=== PATIENT | male | born 1955 | race African-American/Black ===

== ENCOUNTER 2019-09-28 21:11 | Inpatient (IN) | payer MEDICARE, MEDICAID ==
[~2019-09-28] VITALS: Ht 182.9 cm; Wt 71.2 kg
--- NOTE | 2019-09-28 21:11 | NUR ---
ED Nurse Note: PT BIBA R26 FROM HOME C/C SOB X 1 HR, PT WAS GIVEN ALBUTEROL TX ON FIELD. IV ACCESS PRESENT; FLUSHED AND PATENT. AO4. NAD. VSS.
--- NOTE | 2019-09-28 21:18 | Emergency Room Report ---
History of Present Illness General Chief Complaint: Dyspnea/Respdistress Source: Patient Present Illness HPI 64-year-old male history of hypertension, cancer, asthma, COPD presents with acute shortness of breath, patient did have his inhaler, started at 9 PM, aggravated by not having his inhaler alleviated by having his inhaler, severity was severe, constant, patient was given duo nebs in route, with improvement in his symptoms no fevers no chills, no cough no congestion. Allergies: Coded Allergies: IBUPROFEN (Verified Allergy, Unknown, 09/28/19) Patient History Past Medical History: see triage record Social History: Reports: smoking, alcohol use, drug use Reviewed Nursing Documentation: PMH: Agreed; PSxH: Agreed Nursing Documentation-PMH Past Medical History: No History, Except For Hx Hypertension: Yes Hx Asthma: Yes Hx COPD: Yes Review of Systems All Other Systems: negative except mentioned in HPI Physical Exam Vital Signs Date Time Temp Pulse Resp B/P (MAP) Pulse Ox O2 Delivery O2 Flow Rate FiO2 09/28/19 21:10 98.8 76 18 137/92 (107) 98 Room Air Sp02 EP Interpretation: reviewed, normal General Appearance: well appearing, no apparent distress, alert Head: normocephalic, atraumatic Eyes: bilateral eye PERRL, bilateral eye EOMI ENT: uvula midline, moist mucus membranes Neck: supple, thyroid normal, supple/symm/no masses Respiratory: no respiratory distress, no retraction, no accessory muscle use, wheezing Cardiovascular #1: normal peripheral pulses, regular rate, rhythm, no edema, no gallop, no murmur Gastrointestinal: non tender, soft, no guarding, no rebound Musculoskeletal: normal inspection Neurologic: alert, oriented x3 Psychiatric: mood/affect normal Skin: no rash, warm/dry Medical Decision Making Diagnostic Impression: Primary Impression: COPD exacerbation ER Course 64-year-old male presents with acute shortness of breath differential diagnosis includes pneumonia, COPD exacerbation, URI Duo nebs, steroids, fluids Patient admitted to Dr. Pink Laboratory Tests Test 09/28/19 21:15 White Blood Count 9.6 K/UL (4.8-10.8) Red Blood Count 4.88 M/UL (4.70-6.10) Hemoglobin 10.2 G/DL (14.2-18.0) L Hematocrit 33.4 % (42.0-52.0) L Mean Corpuscular Volume 69 FL (80-99) L Mean Corpuscular Hemoglobin 20.8 PG (27.0-31.0) L Mean Corpuscular Hemoglobin Concent 30.4 G/DL (32.0-36.0) L Red Cell Distribution Width 18.7 % (11.6-14.8) H Platelet Count 224 K/UL (150-450) Mean Platelet Volume 11.0 FL (6.5-10.1) H Neutrophils (%) (Auto) 56.8 % (45.0-75.0) Lymphocytes (%) (Auto) 29.4 % (20.0-45.0) Monocytes (%) (Auto) 8.5 % (1.0-10.0) Eosinophils (%) (Auto) 4.5 % (0.0-3.0) H Basophils (%) (Auto) 0.8 % (0.0-2.0) Sodium Level 148 MMOL/L (136-145) H Potassium Level 3.4 MMOL/L (3.5-5.1) L Chloride Level 111 MMOL/L (98-107) H Carbon Dioxide Level 34 MMOL/L (21-32) H Anion Gap 3 mmol/L (5-15) L Blood Urea Nitrogen 15 mg/dL (7-18) Creatinine 1.0 MG/DL (0.55-1.30) Estimate Glomerular Filtration Rate > 60 mL/min (>60) Glucose Level 111 MG/DL (74-106) H Calcium Level 9.2 MG/DL (8.5-10.1) Total Bilirubin 0.3 MG/DL (0.2-1.0) Aspartate Amino Transferase (AST) 11 U/L (15-37) L Alanine Aminotransferase (ALT) 16 U/L (12-78) Alkaline Phosphatase 121 U/L (46-116) H Troponin I 0.015 ng/mL (0.000-0.056) Pro-B-Type Natriuretic Peptide 203 pg/mL (0-125) H Total Protein 7.3 G/DL (6.4-8.2) Albumin 3.3 G/DL (3.4-5.0) L Globulin 4.0 g/dL Albumin/Globulin Ratio 0.8 (1.0-2.7) L EKG Diagnostic Results EKG Time: 21:11 EP Interpretation: NSR, rate 86, QTc 411, right axis deviation, no acute ST elevations Rhythm Strip Diag. Results Rhythm Strip Time: 22:01 EP Interpretation: yes Rate: 88 Rhythm: NSR, no PVC's, no ectopy Chest X-Ray Diagnostic Results Chest X-Ray Diagnostic Results : Chest X-Ray Ordered: Yes # of Views/Limited/Complete: 1 View Indication: Shortness of Breath EP Interpretation: Yes Interpretation: no consolidation, no effusion, no pneumothorax, no acute cardiopulmonary disease Impression: No acute disease Electronically Signed by: Sarkis Dickinson MD Last Vital Signs Date Time Temp Pulse Resp B/P (MAP) Pulse Ox O2 Delivery O2 Flow Rate FiO2 09/28/19 21:10 98.8 76 18 137/92 (107) 98 Room Air Disposition: ADMITTED INPATIENT Condition: Stable Sarkis Dickinson MD Sep 28, 2019 21:18
--- NOTE | 2019-09-28 21:30 | NUR ---
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 blood collected; sent down to lab.
[2019-09-28 21:33] VITALS: BP 137/92
[2019-09-28] MEDS: Albuterol ud Inhalation HHN SCH ×3 (21:34→21:52)
[2019-09-28] MEDS: Ipratropium 0.02% Inh Soln 2.5ml UD HHN SCH ×3 (21:34→21:53)
[2019-09-28 21:41] LABS: BASOPHILS % (AUTO) 0.8 % (0.0-2.0); EOSINOPHILS % (AUTO) 4.5 % (0.0-3.0); HEMATOCRIT 33.4 % (42.0-52.0); HEMOGLOBIN 10.2 G/DL (14.2-18.0); LYMPHOCYTES % (AUTO) 29.4 % (20.0-45.0); MEAN CORPUSCULAR VOLUME 69 FL (80-99); MONOCYTES % (AUTO) 8.5 % (1.0-10.0); NEUTROPHILS % (AUTO) 56.8 % (45.0-75.0); PLATELET COUNT 224 K/UL (150-450); RED BLOOD COUNT 4.88 M/UL (4.70-6.10); RED CELL DISTRIBUTION WIDTH 18.7 % (11.6-14.8); WHITE BLOOD COUNT 9.6 K/UL (4.8-10.8)
[2019-09-28 21:52] LABS: ANION GAP 3 mmol/L (5-15); BLOOD UREA NITROGEN 15 mg/dL (7-18); CALCIUM 9.2 MG/DL (8.5-10.1); CARBON DIOXIDE 34 MMOL/L (21-32); CHLORIDE 111 MMOL/L (98-107); POTASSIUM 3.4 MMOL/L (3.5-5.1); SODIUM 148 MMOL/L (136-145)
[2019-09-28 22:04] LABS: ALANINE AMINOTRANSFERASE 16 U/L (12-78); ALBUMIN 3.3 G/DL (3.4-5.0); ALBUMIN/GLOBULIN RATIO 0.8 (1.0-2.7); ALKALINE PHOSPHATASE 121 U/L (46-116); ASPARTATE AMINO TRANSFERASE 11 U/L (15-37); BILIRUBIN,TOTAL 0.3 MG/DL (0.2-1.0)
--- NOTE | 2019-09-28 22:09 | NUR ---
ED Nurse Note: HENRY RIVERA - [phone] (PT'S DAUGHTER)
[2019-09-28 23:00] VITALS: BP 122/92
[2019-09-28] MEDS ORDERED: LORazepam 1mg tab ORAL PRN (23:15)
[2019-09-28] MEDS ORDERED: Mylanta II UD 30ml ORAL PRN (23:15)
[2019-09-28] MEDS ORDERED: Zolpidem 5mg tab ORAL PRN (23:15)
--- NOTE | 2019-09-28 23:45 | NUR ---
TRANSFER TO FLOOR: Patient transferred to [facility] [id number] as ordered, per MD HELENA. Report given to ANNY LOW. BELONGINGS LIST COMPLETE; BELONGINGS SENT WITH PATIENT. TRANSFERRED TO FLOOR VIA [facility].
[2019-09-28] MEDS ORDERED: NKM (23:58)
[2019-09-29 00:15] VITALS: BP 131/83
--- NOTE | 2019-09-29 00:15 | NUR ---
NURSE NOTES: Pt arrived in the unit. AAOX4. Able to make needs known. On room air. IV site is patent and intact. [place] on the abdomen noted, but overall, skin is intact. Belongings checked and with the pt. Bed in lowest position. Bed alarm is on. Call light within reach. Will continue to monitor.
[2019-09-29 04:00] VITALS: BP 139/89
[2019-09-29] MEDS: Solu-MEDROL 40mg Inj IVP SCH ×3 (05:40→22:10)
[2019-09-29 07:04] LABS: HEMATOCRIT 31.5 % (42.0-52.0); HEMOGLOBIN 9.4 G/DL (14.2-18.0); MEAN CORPUSCULAR VOLUME 69 FL (80-99); PLATELET COUNT 197 K/UL (150-450); RED BLOOD COUNT 4.54 M/UL (4.70-6.10); WHITE BLOOD COUNT 7.5 K/UL (4.8-10.8)
--- NOTE | 2019-09-29 07:35 | NUR ---
HAND-OFF: Report given to Elise Hagen RN.
--- NOTE | 2019-09-29 07:40 | NUR ---
NURSE NOTES: Received report from DEVANTE Vasquez. Pt is Alert, awake, having breakfast on bed. On RA, IV site intact, no apparent distress noted. [place] on abd noted from previous surgery. Bed locked in lowest position, side rails up, call light within reach.
[2019-09-29 07:41] LABS: ANION GAP 12 mmol/L (5-15); BLOOD UREA NITROGEN 11 mg/dL (7-18); CARBON DIOXIDE 25 MMOL/L (21-32); CHLORIDE 108 MMOL/L (98-107); POTASSIUM 3.6 MMOL/L (3.5-5.1); SODIUM 145 MMOL/L (136-145)
[2019-09-29 08:00] VITALS: BP 138/66
--- NOTE | 2019-09-29 08:05 | NUR ---
Called Dr. Pink's office and spoke to Dr. Tillman regarding pt's pain 07/04 at his abd. Awaiting for MD's call for pain med.
--- NOTE | 2019-09-29 08:49 | History and Physical ---
History of Present Illness General Date patient seen: Sep 29, 2019 Reason for Hospitalization: Dyspnea/Respdistress Present Illness HPI poor historian, information obtained via reviewing medical records 64 year old male with history of COPD presented to the hospital with shortness of breath for one day after running out of inhaler. He tells me he recently had an abdominal surgery for cancer at [facility] in [facility] but doesn't know what cancer. Doesn't remember the name of his medications. Lives alone. Doesn't use home oxygen. Denies chest pain, palpitations, abdominal pain, n/v or diarrhea. Denies fever, chills, cough or sputum production. Received duonebs and prednisone in the ER, remained in respiratory distress, tachypnic and admitted PMH: ?Cancer, HTN, COPD/Asthma PSH: recent abdominal surgery Social: Report smoking cigarettes, etoh and drugs Family history: unknown Allergies: Coded Allergies: IBUPROFEN (Verified Allergy, Unknown, 09/28/19) Medication History Scheduled No Known Medications* (NKM - No Known Medications*), 0 ., (Reported) Patient History Healthcare decision maker Resuscitation status Full Code Advanced Directive on File No Review of Systems Constitutional: Denies: no symptoms, see HPI, chills, sweats, fever, malaise, weakness, other Eye: Denies: no symptoms, see HPI, eye pain, blurred vision, tearing, double vision, nose pain, nose congestion, acuity changes, discharge, other ENT: Denies: no symptoms, see HPI, ear pain, ear discharge, nose pain, nose congestion, throat pain, throat swelling, mouth pain, hearing loss, nasal discharge, other Respiratory: Reports: no symptoms, see HPI, cough, orthopnea, stridor, BROUSSARD, sputum, other Cardiovascular: Denies: no symptoms, see HPI, chest pain, edema, palpitations, syncope, PND, other Gastrointestinal: Denies: no symptoms, see HPI, abdominal pain, constipation, diarrhea, nausea, vomiting, melena, hematemesis, other Genitourinary: Denies: no symptoms, see HPI, discharge, dysuria, frequency, hematuria, pain, retention, incontinence, urgency, vag bleed/dc, other Musculoskeletal: Denies: no symptoms, see HPI, back pain, gout, joint pain, joint swelling, muscle pain, muscle stiffness, other Skin: Denies: no symptoms, see HPI, rash, change in color, change in hair/nails , dryness, lesions, other Psychiatric: Denies: no symptoms, see HPI, prior hx, anxiety, depressed feelings, emotional problems, SI, HI, hallucinations, other Neurological: Denies: no symptoms, see HPI, headache, numbness, paresthesia, seizure, tingling, tremors, focal weakness, syncope, dizziness, other Endocrine: Denies: no symptoms, see HPI, excessive sweating, flushing, intolerance to temperature, increased thirst, increased urine, unexplained weight loss, other Hematologic/Lymphatic: Denies: no symptoms, see HPI, anemia, blood clots, easy bleeding, easy bruising, swollen glands, diathesis, other Physical Exam Physical Exam Narrative General Appearance: well appearing, respiratory distress, alert Head: normocephalic, atraumatic Eyes: bilateral eye PERRL, bilateral eye EOMI ENT: uvula midline, moist mucus membranes Neck: supple, thyroid normal, supple/symm/no masses Respiratory: no respiratory distress, no retraction, no accessory muscle use, + wheezing Cardiovascular: normal peripheral pulses, regular rate, rhythm, no edema, no gallop, no murmur Gastrointestinal: non tender, soft, no guarding, no rebound, midline christine Musculoskeletal: normal inspection Neurologic: alert, oriented x3, grossly normal Psychiatric: mood/affect normal Skin: no rash, warm/dry Last 24 Hour Vital Signs Date Time Temp Pulse Resp B/P (MAP) Pulse Ox O2 Delivery O2 Flow Rate FiO2 09/29/19 08:00 97.5 73 18 138/66 (90) 97 09/29/19 04:00 97.6 87 18 139/89 (106) 97 09/29/19 00:48 Room Air 09/29/19 00:15 98.5 77 24 131/83 (99) 96 09/28/19 23:45 98.8 80 14 122/92 98 Room Air 21 09/28/19 23:00 98.8 80 14 122/92 98 Room Air 09/28/19 21:48 74 14 100 Room Air 21 71 14 100 09/28/19 21:38 71 14 100 Room Air 21 70 14 100 09/28/19 21:33 76 18 Room Air 09/28/19 21:33 98.8 76 18 137/92 98 Room Air 09/28/19 21:28 79 21 96 Room Air 21 09/28/19 21:28 70 14 100 Room Air 21 79 21 96 09/28/19 21:10 98.8 76 18 137/92 (107) 98 Room Air Intake and Output 09/28/19 09/29/19 19:00 07:00 Output Total 300 ml Balance -300 ml Output Urine Total 300 ml Laboratory Tests Test 09/28/19 21:15 09/29/19 05:55 White Blood Count 9.6 K/UL (4.8-10.8) 7.5 K/UL (4.8-10.8) Red Blood Count 4.88 M/UL (4.70-6.10) 4.54 M/UL (4.70-6.10) L Hemoglobin 10.2 G/DL (14.2-18.0) L 9.4 G/DL (14.2-18.0) L Hematocrit 33.4 % (42.0-52.0) L 31.5 % (42.0-52.0) L Mean Corpuscular Volume 69 FL (80-99) L 69 FL (80-99) L Mean Corpuscular Hemoglobin 20.8 PG (27.0-31.0) L 20.8 PG (27.0-31.0) L Mean Corpuscular Hemoglobin Concent 30.4 G/DL (32.0-36.0) L 30.0 G/DL (32.0-36.0) L Red Cell Distribution Width 18.7 % (11.6-14.8) H 19.0 % (11.6-14.8) H Platelet Count 224 K/UL (150-450) 197 K/UL (150-450) Mean Platelet Volume 11.0 FL (6.5-10.1) H 10.9 FL (6.5-10.1) H Neutrophils (%) (Auto) 56.8 % (45.0-75.0) % (45.0-75.0) Lymphocytes (%) (Auto) 29.4 % (20.0-45.0) % (20.0-45.0) Monocytes (%) (Auto) 8.5 % (1.0-10.0) % (1.0-10.0) Eosinophils (%) (Auto) 4.5 % (0.0-3.0) H % (0.0-3.0) Basophils (%) (Auto) 0.8 % (0.0-2.0) % (0.0-2.0) Sodium Level 148 MMOL/L (136-145) H 145 MMOL/L (136-145) Potassium Level 3.4 MMOL/L (3.5-5.1) L 3.6 MMOL/L (3.5-5.1) Chloride Level 111 MMOL/L (98-107) H 108 MMOL/L (98-107) H Carbon Dioxide Level 34 MMOL/L (21-32) H 25 MMOL/L (21-32) Anion Gap 3 mmol/L (5-15) L 12 mmol/L (5-15) Blood Urea Nitrogen 15 mg/dL (7-18) 11 mg/dL (7-18) Creatinine 1.0 MG/DL (0.55-1.30) 1.0 MG/DL (0.55-1.30) Estimat Glomerular Filtration Rate > 60 mL/min (>60) > 60 mL/min (>60) Glucose Level 111 MG/DL (74-106) H 166 MG/DL (74-106) H Calcium Level 9.2 MG/DL (8.5-10.1) 9.0 MG/DL (8.5-10.1) Total Bilirubin 0.3 MG/DL (0.2-1.0) Aspartate Amino Transf (AST/SGOT) 11 U/L (15-37) L Alanine Aminotransferase (ALT/SGPT) 16 U/L (12-78) Alkaline Phosphatase 121 U/L (46-116) H Troponin I 0.015 ng/mL (0.000-0.056) Pro-B-Type Natriuretic Peptide 203 pg/mL (0-125) H Total Protein 7.3 G/DL (6.4-8.2) Albumin 3.3 G/DL (3.4-5.0) L Globulin 4.0 g/dL Albumin/Globulin Ratio 0.8 (1.0-2.7) L Neutrophils % (Manual) Pending Lymphocytes % (Manual) Pending Platelet Estimate Pending Platelet Morphology Pending Height (Feet): 6 Height (Inches): 0.00 Weight (Pounds): 160 Medications Current Medications Medications (Trade) Dose Ordered Sig/Varun Route PRN Reason Start Time Stop Time Status Last Admin Dose Admin Al Hydroxide/Mg Hydroxide (Mylanta II) 30 ml Q6H PRN ORAL dyspepsia 09/28/19 23:15 10/28/19 23:14 Albuterol/ Ipratropium (Albuterol/ Ipratropium) 3 ml Q4H PRN HHN Shortness of Breath 09/28/19 23:15 10/03/19 23:14 Bisacodyl (Dulcolax) 10 mg HSPRN PRN RECTAL Constipation 09/28/19 23:15 10/28/19 23:14 Dextrose (Dextrose 50%) 25 ml Q30M PRN IV Hypoglycemia 09/28/19 23:15 10/28/19 23:14 Dextrose (Dextrose 50%) 50 ml Q30M PRN IV Hypoglycemia 09/28/19 23:15 10/28/19 23:14 Diphenhydramine HCl (Benadryl) 25 mg Q6H PRN ORAL Itching/Pruritis 09/28/19 23:15 10/28/19 23:14 Docusate Sodium (Colace) 100 mg EVERY 12 HOURS ORAL 09/29/19 09:00 10/29/19 08:59 Heparin Sodium (Porcine) (Heparin 5000 units/ml) 5,000 units EVERY 12 HOURS SUBQ 09/29/19 09:00 10/29/19 08:59 Lorazepam (Ativan) 1 mg Q4H PRN ORAL For Anxiety 09/28/19 23:15 10/05/19 23:14 Methylprednisolone Sodium Succinate (Solu-MEDROL) 40 mg EVERY 8 HOURS IVP 09/29/19 06:00 10/29/19 05:59 09/29/19 05:40 Ondansetron HCl (Zofran) 4 mg Q6H PRN IVP Nausea & Vomiting 09/28/19 23:15 10/28/19 23:14 Pantoprazole (Protonix) 40 mg DAILY@0630 ORAL 09/29/19 06:30 10/29/19 06:29 09/29/19 05:40 Zolpidem Tartrate (Ambien) 5 mg HSPRN PRN ORAL Insomnia 09/28/19 23:15 10/05/19 23:14 Objective Narrative ECG personally interpreted by me: NSR @ 86, R axis, no acute st-t changes, QTC 411 CXR: as read by radiology: No acute process Assessment/Plan Problem List: (1) COPD exacerbation ICD Codes: J44.1 - Chronic obstructive pulmonary disease with (acute) exacerbation SNOMED: [id number] Status: progressing Assessment/Plan: 64 M poor historian presented with sob, #AECOPD duonebs IV methylprednisolone 40 mg q hr, taper per clinical response no role for antibiotics pulmonary hygiene O2 via nc as needed #Mild dehydration -IV fluids #Hypokalemia replace prn #Anemia, microcytic Anemia panel #? 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 >50% spent on counselling and care coordination. Time of note may not reflect time of encounter Dewayne Waite M.D. Sep 29, 2019 08:49
[2019-09-29] MEDS: Docusate 100mg cap ORAL SCH ×2 (08:58→20:30)
--- NOTE | 2019-09-29 09:03 | NUR ---
RN made aware of Dr. Waite's order to change the MD to Dr. Colby. RN called to admitting, spoke to Klarissa and faxed the Dr's order to Admitting.
[2019-09-29] MEDS: Heparin 5000 units/ml inj SUBQ SCH ×2 (09:04→20:32)
--- NOTE | 2019-09-29 09:27 | NUR ---
RN called Dr. Colby's office and spoke to Forrest regarding pain medication order for pt's pain at abd. Awaiting for MD's call.
[2019-09-29 12:00] VITALS: BP 140/79
--- NOTE | 2019-09-29 12:20 | Diagnostic Imaging Report ---
Indication: Shortness of breath Technique: One view of the chest Comparison: none Findings: Aorta is elongated and calcified. Lungs and pleural spaces are clear. Heart size is normal. Impression: No acute process
[2019-09-29] MEDS: traMADol 50mg tab ORAL PRN (13:47)
[2019-09-29 16:00] VITALS: BP 121/80
--- NOTE | 2019-09-29 16:08 | NUR ---
CASE MANAGEMENT: INITIAL REVIEW 64YR OLD MALE BIBA FROM HOME CC: DYSPNEA; RESP DISTRESS SI: COPD EXACERBATION 98.7 76 18 137/92 98% ON RA H/H 10.2/33.4; NA+148; K+ 3.4; BNP 203 IS: IVF NS BOLUS X1 PREDNISONE PO X1 PROVENTIL HHN X1 ATROVENT HHN X1 : 4E TELE UNIT DCP: RETURN HOME WHEN MEDICALLY STABLE CASE MANAGEMENT: REVIEW 09/29/19 SI: COPD EXACERBATION 97.5 73 18 138/66 97% ON RA RBC 4.54; H/H 9.4/31.5 IS: HEPARIN SQ Q12HR PROTONIX PO QD IV SOLUMEDROL Q8HR COLACE PO Q12HR ULTRAM PO Q6/PRN : 4E TELE UNIT DCP: RETURN HOME WHEN MEDICALLY STABLE
--- NOTE | 2019-09-29 19:22 | NUR ---
HAND-OFF: Report given to DEVANTE Longoria.
--- NOTE | 2019-09-29 19:32 | NUR ---
NURSE NOTES: Received report from DEVANTE Eng. AAO x 4, on room air. IV site intact and patent. No acute distress noted at this time. Gomez on abd noted from previous surgery. Bed locked, lowest position, alarm on, side rails up, call light within reach. Will continue to monitor.
[2019-09-29 20:00] VITALS: BP 130/79
--- NOTE | 2019-09-29 21:09 | Pulmonology Progress Note ---
Assessment/Plan Assessment/Plan Pulmonary Consultation HPI Patient is a 64 year old man with past medical history of COPD/Asthma, Hypertension, Colon Cancer, admitted with shortness of breath, had run out of inhalers, no fevers no chills, no cough no congestion. Allergies: IBUPROFEN Past Medical History: COPD/Asthma, Hypertension, Colon Cancer All Other Systems: negative except mentioned in HPI Physical Exam Vital Signs Noted General Appearance: well appearing, no apparent distress, alert Head: normocephalic, atraumatic Eyes: bilateral eye PERRL, bilateral eye EOMI ENT: uvula midline, moist mucus membranes Neck: supple, thyroid normal, supple/symm/no masses Respiratory: no respiratory distress, no retraction, no accessory muscle use, reduced BS Cardiovascular: normal peripheral pulses, regular rate, rhythm, HS1, HS2 normal , no edema, no gallop, no murmur Gastrointestinal: recent surgical wound, mild tenderness, tender, soft, no guarding, no rebound Musculoskeletal: normal inspection Neurologic: alert, oriented x3 Skin: no rash, warm/dry Impression: COPD exacerbation Hypertension Colon Cancer s/p recent surgery Plan: Duo nebs 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 Pink Laboratory Tests Test 09/28/19 21:15 White Blood Count 9.6 K/UL (4.8-10.8) Red Blood Count 4.88 M/UL (4.70-6.10) Hemoglobin 10.2 G/DL (14.2-18.0) L Hematocrit 33.4 % (42.0-52.0) L Mean Corpuscular Volume 69 FL (80-99) L Mean Corpuscular Hemoglobin 20.8 PG (27.0-31.0) L Mean Corpuscular Hemoglobin Concent 30.4 G/DL (32.0-36.0) L Red Cell Distribution Width 18.7 % (11.6-14.8) H Platelet Count 224 K/UL (150-450) Mean Platelet Volume 11.0 FL (6.5-10.1) H Neutrophils (%) (Auto) 56.8 % (45.0-75.0) Lymphocytes (%) (Auto) 29.4 % (20.0-45.0) Monocytes (%) (Auto) 8.5 % (1.0-10.0) Eosinophils (%) (Auto) 4.5 % (0.0-3.0) H Basophils (%) (Auto) 0.8 % (0.0-2.0) Sodium Level 148 MMOL/L (136-145) H Potassium Level 3.4 MMOL/L (3.5-5.1) L Chloride Level 111 MMOL/L (98-107) H Carbon Dioxide Level 34 MMOL/L (21-32) H Anion Gap 3 mmol/L (5-15) L Blood Urea Nitrogen 15 mg/dL (7-18) Creatinine 1.0 MG/DL (0.55-1.30) Estimate Glomerular Filtration Rate > 60 mL/min (>60) Glucose Level 111 MG/DL (74-106) H Calcium Level 9.2 MG/DL (8.5-10.1) Total Bilirubin 0.3 MG/DL (0.2-1.0) Aspartate Amino Transferase (AST) 11 U/L (15-37) L Alanine Aminotransferase (ALT) 16 U/L (12-78) Alkaline Phosphatase 121 U/L (46-116) H Troponin I 0.015 ng/mL (0.000-0.056) Pro-B-Type Natriuretic Peptide 203 pg/mL (0-125) H Total Protein 7.3 G/DL (6.4-8.2) Albumin 3.3 G/DL (3.4-5.0) L Globulin 4.0 g/dL Albumin/Globulin Ratio 0.8 (1.0-2.7) L EKG: NSR, rate 86, QTc 411, right axis deviation, no acute ST elevations Chest X-Ray: no consolidation, no effusion, no pneumothorax, no acute cardiopulmonary disease Subjective ROS Limited/Unobtainable: No Allergies: Coded Allergies: IBUPROFEN (Verified Allergy, Unknown, 09/28/19) Objective Last 24 Hour Vital Signs Date Time Temp Pulse Resp B/P (MAP) Pulse Ox O2 Delivery O2 Flow Rate FiO2 09/29/19 20:42 Room Air 09/29/19 20:00 98.6 64 20 130/79 (96) 96 09/29/19 16:00 98.8 77 20 121/80 (94) 99 09/29/19 12:00 98.2 79 18 140/79 (99) 100 09/29/19 10:33 Room Air 09/29/19 09:00 Room Air 09/29/19 08:00 97.5 73 18 138/66 (90) 97 09/29/19 04:00 97.6 87 18 139/89 (106) 97 09/29/19 00:48 Room Air 09/29/19 00:15 98.5 77 24 131/83 (99) 96 09/28/19 23:45 98.8 80 14 122/92 98 Room Air 21 09/28/19 23:00 98.8 80 14 122/92 98 Room Air 09/28/19 21:48 74 14 100 Room Air 21 71 14 100 09/28/19 21:38 71 14 100 Room Air 21 70 14 100 09/28/19 21:33 76 18 Room Air 09/28/19 21:33 98.8 76 18 137/92 98 Room Air 09/28/19 21:28 79 21 96 Room Air 21 09/28/19 21:28 70 14 100 Room Air 21 79 21 96 09/28/19 21:10 98.8 76 18 137/92 (107) 98 Room Air Intake and Output 09/28/19 09/29/19 19:00 07:00 Output Total 300 ml Balance -300 ml Output Urine Total 300 ml Laboratory Tests 09/28/19 21:15: White Blood Count 9.6, Red Blood Count 4.88, Hemoglobin 10.2L, Hematocrit 33.4L , Mean Corpuscular Volume 69L, Mean Corpuscular Hemoglobin 20.8L, Mean Corpuscular Hemoglobin Concent 30.4L, Red Cell Distribution Width 18.7H, Platelet Count 224, Mean Platelet Volume 11.0H, Neutrophils (%) (Auto) 56.8, Lymphocytes (%) (Auto) 29.4, Monocytes (%) (Auto) 8.5, Eosinophils (%) (Auto) 4.5H, Basophils (%) (Auto) 0.8, Sodium Level 148H, Potassium Level 3.4L, Chloride Level 111H, Carbon Dioxide Level 34H, Anion Gap 3L, Blood Urea Nitrogen 15, Creatinine 1.0, Estimat Glomerular Filtration Rate > 60, Glucose Level 111H, Calcium Level 9.2, Total Bilirubin 0.3, Aspartate Amino Transf (AST/ SGOT) 11L, Alanine Aminotransferase (ALT/SGPT) 16, Alkaline Phosphatase 121H, Troponin I 0.015, Pro-B-Type Natriuretic Peptide 203H, Total Protein 7.3, Albumin 3.3L, Globulin 4.0, Albumin/Globulin Ratio 0.8L 09/29/19 05:55: White Blood Count 7.5, Red Blood Count 4.54L, Hemoglobin 9.4L, Hematocrit 31.5L , Mean Corpuscular Volume 69L, Mean Corpuscular Hemoglobin 20.8L, Mean Corpuscular Hemoglobin Concent 30.0L, Red Cell Distribution Width 19.0H, Platelet Count 197, Mean Platelet Volume 10.9H, Neutrophils (%) (Auto) , Lymphocytes (%) (Auto) , Monocytes (%) (Auto) , Eosinophils (%) (Auto) , Basophils (%) (Auto) , Sodium Level 145, Potassium Level 3.6, Chloride Level 108H, Carbon Dioxide Level 25, Anion Gap 12, Blood Urea Nitrogen 11, Creatinine 1.0, Estimat Glomerular Filtration Rate > 60, Glucose Level 166H, Calcium Level 9.0, Differential Total Cells Counted 100, Neutrophils % (Manual) 93H, Lymphocytes % (Manual) 6L, Monocytes % (Manual) 1, Eosinophils % (Manual) 0, Basophils % (Manual) 0, Band Neutrophils 0, Platelet Estimate Adequate, Platelet Morphology Normal, Anisocytosis 1+ Current Medications Medications (Trade) Dose Ordered Sig/Varun Route PRN Reason Start Time Stop Time Status Last Admin Dose Admin Al Hydroxide/Mg Hydroxide (Mylanta II) 30 ml Q6H PRN ORAL dyspepsia 09/28/19 23:15 10/28/19 23:14 Albuterol/ Ipratropium (Albuterol/ Ipratropium) 3 ml Q4H PRN HHN Shortness of Breath 09/28/19 23:15 10/03/19 23:14 Bisacodyl (Dulcolax) 10 mg HSPRN PRN RECTAL Constipation 09/28/19 23:15 10/28/19 23:14 Dextrose (Dextrose 50%) 25 ml Q30M PRN IV Hypoglycemia 09/28/19 23:15 10/28/19 23:14 Dextrose (Dextrose 50%) 50 ml Q30M PRN IV Hypoglycemia 09/28/19 23:15 10/28/19 23:14 Diphenhydramine HCl (Benadryl) 25 mg Q6H PRN ORAL Itching/Pruritis 09/28/19 23:15 10/28/19 23:14 Docusate Sodium (Colace) 100 mg EVERY 12 HOURS ORAL 09/29/19 09:00 10/29/19 08:59 09/29/19 20:30 Heparin Sodium (Porcine) (Heparin 5000 units/ml) 5,000 units EVERY 12 HOURS SUBQ 09/29/19 09:00 10/29/19 08:59 09/29/19 20:32 Lorazepam (Ativan) 1 mg Q4H PRN ORAL For Anxiety 09/28/19 23:15 10/05/19 23:14 Methylprednisolone Sodium Succinate (Solu-MEDROL) 40 mg EVERY 8 HOURS IVP 09/29/19 06:00 10/29/19 05:59 09/29/19 13:45 Ondansetron HCl (Zofran) 4 mg Q6H PRN IVP Nausea & Vomiting 09/28/19 23:15 10/28/19 23:14 Pantoprazole (Protonix) 40 mg DAILY@0630 ORAL 09/29/19 06:30 10/29/19 06:29 09/29/19 05:40 Tramadol HCl (Ultram) 50 mg Q6H PRN ORAL pain 09/29/19 11:15 10/06/19 11:14 09/29/19 13:47 Zolpidem Tartrate (Ambien) 5 mg HSPRN PRN ORAL Insomnia 09/28/19 23:15 10/05/19 23:14 Danyel Wilson MD Sep 29, 2019 21:09
--- NOTE | 2019-09-29 21:55 | NUR ---
NURSE NOTES: Pt stated can't breath well. Called RT and came. RN gave oxygen NC 2L/min. Vitals 143/86 BP, 97% O2, 90 HR. Will continue to monitor. Addendum: 09/29/19 at 2224 by JAMAL ZAMORANO RN RN NURSE NOTES: Resp. therapy done. O2 99%. Left message Dr. Waite to gent an order oxygen therapy. Waiting for call back.
[2019-09-29] MEDS: Albuterol/Ipratropium 3ml neb HHN PRN (22:00)
--- NOTE | 2019-09-29 22:40 | NUR ---
NURSE NOTES: Received order from Dr. marcelo. NC 2 L, titrate O2 >92%, chest xray. Order noted and carried out.
[2019-09-30] VITALS (7 sets, daily range): BP systolic 111–137; BP diastolic 61–88
[2019-09-30] MEDS: Solu-MEDROL 40mg Inj IVP SCH ×3 (05:59→21:42)
--- NOTE | 2019-09-30 07:13 | NUR ---
HAND-OFF: Report given to DEVANTE Blackwood.
--- NOTE | 2019-09-30 07:30 | NUR ---
NURSE NOTES: Received pt from JAMAL LOW. Pt is alert and orient. pt has NC 2LMP. Pt has intact iv access LAC 18G SL. pt is eating breakfast independently. All needs attended, bed is locked and is in the lowest position. call light within easy reach. will continue to monitor.
[2019-09-30 08:32] LABS: ANION GAP 9 mmol/L (5-15); BLOOD UREA NITROGEN 16 mg/dL (7-18); CALCIUM 8.9 MG/DL (8.5-10.1); CARBON DIOXIDE 27 MMOL/L (21-32); CHLORIDE 107 MMOL/L (98-107); CREATININE 0.9 MG/DL (0.55-1.30); POTASSIUM 4.2 MMOL/L (3.5-5.1); SODIUM 143 MMOL/L (136-145)
[2019-09-30 08:41] LABS: % IRON SATURATION 7 % (15-50); IRON 21 ug/dL (50-175); TOTAL IRON BINDING CAPACITY 317 ug/dL (250-450)
[2019-09-30 08:47] LABS: FERRITIN 11 NG/ML (8-388)
[2019-09-30] MEDS: Docusate 100mg cap ORAL SCH ×2 (08:54→21:42)
[2019-09-30] MEDS: Heparin 5000 units/ml inj SUBQ SCH ×2 (08:54→21:44)
--- NOTE | 2019-09-30 09:14 | General Progress Note ---
Assessment/Plan Problem List: (1) COPD exacerbation ICD Codes: J44.1 - Chronic obstructive pulmonary disease with (acute) exacerbation SNOMED: 873818212 (2) Iron deficiency anemia ICD Codes: D50.9 - Iron deficiency anemia, unspecified SNOMED: [id number] Status: progressing Assessment/Plan: 64 M poor historian presented with sob #?PE, given new dx f cancer WELLS score 2.5- moderate risk. Will order d-dimer and consider CTA #AECOPD duonebs IV methylprednisolone, taper per clinical response Add levofloxacin pulmonary hygiene O2 via nc as needed #Mild dehydration -s/p V fluids #Hypokalemia replace prn #Anemia, microcytic Anemia panel --> iron deficiency anemia start ferrous sulfate #? cancer, recent abdominal surgery -Will have to obtain more information from [facility] -SW/caser up consult I spent 40 minutes on this encounter. >50% spent on counselling and care coordination. case d/w rn Afsoon Time of note may not reflect time of encounter Subjective Date patient seen: Sep 30, 2019 ROS Limited/Unobtainable: No Constitutional: Denies: no symptoms, chills, diaphoresis, fever, malaise, weakness, other HEENT: Denies: no symptoms, eye pain, blurred vision, tearing, double vision, ear pain, ear discharge, nose pain, nose congestion, throat pain, throat swelling, mouth pain, mouth swelling, other Cardiovascular: Denies: no symptoms, chest pain, edema, irregular heart rate, lightheadedness, palpitations, syncope, other Respiratory: Reports: no symptoms, cough, orthopnea, SOB with excertion, SOB at rest, sputum, stridor, wheezing, other Gastrointestinal/Abdominal: Denies: no symptoms, abdomen distended, abdominal pain, black stools, tarry stools, blood in stool, constipated, diarrhea, difficulty swallowing, nausea, poor appetite, poor fluid intake, rectal bleeding , vomiting, other Genitourinary: Denies: no symptoms, burning, discharge, frequency, flank pain, hematuria, incontinence, pain, urgency, other Neurologic/Psychiatric: Denies: no symptoms, anxiety, depressed, emotional problems, headache, numbness, paresthesia, pre-existing deficit, seizure, tingling, tremors, weakness, other Endocrine: Denies: no symptoms, excessive sweating, flushing, intolerance to cold, intolerance to heat, increased hunger, increased thirst, increased urine, unexplained weight gain, unexplained weight loss, other Allergies: Coded Allergies: IBUPROFEN (Verified Allergy, Unknown, 09/28/19) Subjective now coughing, sounds wet. Had episodes of sob and desaturation last night, placed on low flow oxygen via NC, saturation 97% Objective Last 24 Hour Vital Signs Date Time Temp Pulse Resp B/P (MAP) Pulse Ox O2 Delivery O2 Flow Rate FiO2 09/30/19 08:00 97.7 70 20 137/86 (103) 98 09/30/19 07:41 68 18 98 Nasal Cannula 2.0 28 09/30/19 04:00 97.3 70 19 125/72 (89) 97 09/30/19 00:00 98.1 71 19 111/67 (82) 97 09/29/19 22:03 84 20 97 Nasal Cannula 2.0 28 09/29/19 22:00 88 18 99 Nasal Cannula 2.0 28 84 18 97 09/29/19 20:42 Nasal Cannula 2.0 09/29/19 20:00 98.6 64 20 130/79 (96) 96 09/29/19 16:00 98.8 77 20 121/80 (94) 99 09/29/19 12:00 98.2 79 18 140/79 (99) 100 09/29/19 10:33 Room Air Intake and Output 09/29/19 09/30/19 19:00 07:00 Intake Total 1080 ml Output Total 400 ml 500 ml Balance 680 ml -500 ml Intake Oral 1080 ml Output Urine Total 400 ml 500 ml Laboratory Tests 09/30/19 07:05: Sodium Level 143, Potassium Level 4.2, Chloride Level 107, Carbon Dioxide Level 27, Anion Gap 9, Blood Urea Nitrogen 16, Creatinine 0.9, Estimat Glomerular Filtration Rate > 60, Glucose Level 120H, Calcium Level 8.9, Iron Level 21L, Total Iron Binding Capacity 317, Percent Iron Saturation 7L, Unsaturated Iron Binding 296, Ferritin 11 Height (Feet): 6 Height (Inches): 0.00 Weight (Pounds): 157 Objective General Appearance: well appearing, respiratory distress, alert Head: normocephalic, atraumatic Eyes: bilateral eye PERRL, bilateral eye EOMI ENT: uvula midline, moist mucus membranes Neck: supple, thyroid normal, supple/symm/no masses Respiratory: no respiratory distress, no retraction, no accessory muscle use, + wheezing- improving Cardiovascular: normal peripheral pulses, regular rate, rhythm, no edema, no gallop, no murmur Gastrointestinal: non tender, soft, no guarding, no rebound, midline christine Musculoskeletal: normal inspection Neurologic: alert, oriented x3, grossly normal Psychiatric: mood/affect normal Skin: no rash, warm/dry Dewayne Waite M.D. Sep 30, 2019 09:14
--- NOTE | 2019-09-30 11:49 | Diagnostic Imaging Report ---
Indication: Cough, shortness of breath Technique: One view of the chest Comparison: 09/28/2019 Findings: Lungs and pleural spaces are clear. Heart size is normal. Tortuous aorta. No significant interim change Impression: No acute process
--- NOTE | 2019-09-30 16:06 | NUR ---
CASE MANAGEMENT: REVIEW 09/30/19 SI: COPD EXACERBATION 97.7 70 20 137/86 98% NC 2L FE 21; % SAT 7; IS: LEVQUIN PO QD FEOSOL PO TID HEPARIN SQ Q12HR PROTONIX PO QD IV SOLUMEDROL Q8HR COLACE PO Q12HR ULTRAM PO Q6/PRN ALBUTEROL HHN Q4/PRN : 4E TELE UNIT DCP: RETURN HOME WHEN MEDICALLY STABLE
[2019-09-30] MEDS: Albuterol/Ipratropium 3ml neb HHN PRN (18:40)
--- NOTE | 2019-09-30 19:31 | NUR ---
HAND-OFF: Report given to RN ZI/HAYDE. Pt is awake and stable.
--- NOTE | 2019-09-30 20:00 | NUR ---
NURSE NOTES: Received pt in bed. AAO x 4, oxygen therapy: nasal canula 2ml/min. on abdominal surgical christine presented. No acute distress noted at this time. call light within reach. bed is the lowest position. Will continue to provide plan of care.
--- NOTE | 2019-09-30 21:47 | Pulmonology Progress Note ---
Assessment/Plan Assessment/Plan Pulmonary Progress Note HPI Patient is a 64 year old man with past medical history of COPD/Asthma, Hypertension, Colon Cancer, admitted with shortness of breath, had run out of inhalers, no fevers no chills, no cough no congestion. Allergies: IBUPROFEN Past Medical History: COPD/Asthma, Hypertension, Colon Cancer Physical Exam Vital Signs Noted General Appearance: well appearing, no apparent distress, alert Head: normocephalic, atraumatic Eyes: bilateral eye PERRL, bilateral eye EOMI ENT: uvula midline, moist mucus membranes Neck: supple, thyroid normal, supple/symm/no masses Respiratory: no respiratory distress, no retraction, no accessory muscle use, reduced BS Cardiovascular: normal peripheral pulses, regular rate, rhythm, HS1, HS2 normal , no edema, no gallop, no murmur Gastrointestinal: recent surgical wound, mild tenderness, tender, soft, no guarding, no rebound Musculoskeletal: normal inspection Neurologic: alert, oriented x3 Skin: no rash, warm/dry Impression: COPD exacerbation Hypertension Colon Cancer s/p recent surgery Plan: Duo nebs Steroids CERTIFIED MIDWIFE medication PPX O2 PRN Laboratory Tests Test 09/28/19 21:15 White Blood Count 9.6 K/UL (4.8-10.8) Red Blood Count 4.88 M/UL (4.70-6.10) Hemoglobin 10.2 G/DL (14.2-18.0) L Hematocrit 33.4 % (42.0-52.0) L Mean Corpuscular Volume 69 FL (80-99) L Mean Corpuscular Hemoglobin 20.8 PG (27.0-31.0) L Mean Corpuscular Hemoglobin Concent 30.4 G/DL (32.0-36.0) L Red Cell Distribution Width 18.7 % (11.6-14.8) H Platelet Count 224 K/UL (150-450) Mean Platelet Volume 11.0 FL (6.5-10.1) H Neutrophils (%) (Auto) 56.8 % (45.0-75.0) Lymphocytes (%) (Auto) 29.4 % (20.0-45.0) Monocytes (%) (Auto) 8.5 % (1.0-10.0) Eosinophils (%) (Auto) 4.5 % (0.0-3.0) H Basophils (%) (Auto) 0.8 % (0.0-2.0) Sodium Level 148 MMOL/L (136-145) H Potassium Level 3.4 MMOL/L (3.5-5.1) L Chloride Level 111 MMOL/L (98-107) H Carbon Dioxide Level 34 MMOL/L (21-32) H Anion Gap 3 mmol/L (5-15) L Blood Urea Nitrogen 15 mg/dL (7-18) Creatinine 1.0 MG/DL (0.55-1.30) Estimate Glomerular Filtration Rate > 60 mL/min (>60) Glucose Level 111 MG/DL (74-106) H Calcium Level 9.2 MG/DL (8.5-10.1) Total Bilirubin 0.3 MG/DL (0.2-1.0) Aspartate Amino Transferase (AST) 11 U/L (15-37) L Alanine Aminotransferase (ALT) 16 U/L (12-78) Alkaline Phosphatase 121 U/L (46-116) H Troponin I 0.015 ng/mL (0.000-0.056) Pro-B-Type Natriuretic Peptide 203 pg/mL (0-125) H Total Protein 7.3 G/DL (6.4-8.2) Albumin 3.3 G/DL (3.4-5.0) L Globulin 4.0 g/dL Albumin/Globulin Ratio 0.8 (1.0-2.7) L EKG: NSR, rate 86, QTc 411, right axis deviation, no acute ST elevations Chest X-Ray: no consolidation, no effusion, no pneumothorax, no acute cardiopulmonary disease Subjective ROS Limited/Unobtainable: No Allergies: Coded Allergies: IBUPROFEN (Verified Allergy, Unknown, 09/28/19) Objective Last 24 Hour Vital Signs Date Time Temp Pulse Resp B/P (MAP) Pulse Ox O2 Delivery O2 Flow Rate FiO2 09/30/19 20:00 97.9 82 19 124/76 (92) 96 09/30/19 18:50 83 18 100 09/30/19 18:40 91 20 98 Nasal Cannula 2.0 28 09/30/19 18:40 91 20 98 Nasal Cannula 2.0 28 09/30/19 18:40 98 Nasal Cannula 2.0 28 09/30/19 16:00 98.2 70 19 128/61 (83) 96 09/30/19 12:00 98.2 67 18 128/88 (101) 96 09/30/19 09:42 Nasal Cannula 2.5 09/30/19 09:00 Nasal Cannula 2.0 09/30/19 08:00 97.7 70 20 137/86 (103) 98 09/30/19 07:41 68 18 98 Nasal Cannula 2.0 28 09/30/19 04:00 97.3 70 19 125/72 (89) 97 09/30/19 00:00 98.1 71 19 111/67 (82) 97 09/29/19 22:03 84 20 97 Nasal Cannula 2.0 28 09/29/19 22:00 88 18 99 Nasal Cannula 2.0 28 84 18 97 Intake and Output 09/29/19 09/30/19 19:00 07:00 Intake Total 1080 ml Output Total 400 ml 500 ml Balance 680 ml -500 ml Intake Oral 1080 ml Output Urine Total 400 ml 500 ml Laboratory Tests 09/30/19 07:05: Sodium Level 143, Potassium Level 4.2, Chloride Level 107, Carbon Dioxide Level 27, Anion Gap 9, Blood Urea Nitrogen 16, Creatinine 0.9, Estimat Glomerular Filtration Rate > 60, Glucose Level 120H, Calcium Level 8.9, Iron Level 21L, Total Iron Binding Capacity 317, Percent Iron Saturation 7L, Unsaturated Iron Binding 296, Ferritin 11 Current Medications Medications (Trade) Dose Ordered Sig/Varun Route PRN Reason Start Time Stop Time Status Last Admin Dose Admin Al Hydroxide/Mg Hydroxide (Mylanta II) 30 ml Q6H PRN ORAL dyspepsia 09/28/19 23:15 10/28/19 23:14 Albuterol/ Ipratropium (Albuterol/ Ipratropium) 3 ml Q4H PRN HHN Shortness of Breath 09/28/19 23:15 10/03/19 23:14 09/30/19 18:40 Bisacodyl (Dulcolax) 10 mg HSPRN PRN RECTAL Constipation 09/28/19 23:15 10/28/19 23:14 Dextrose (Dextrose 50%) 25 ml Q30M PRN IV Hypoglycemia 09/28/19 23:15 10/28/19 23:14 Dextrose (Dextrose 50%) 50 ml Q30M PRN IV Hypoglycemia 09/28/19 23:15 10/28/19 23:14 Diphenhydramine HCl (Benadryl) 25 mg Q6H PRN ORAL Itching/Pruritis 09/28/19 23:15 10/28/19 23:14 Docusate Sodium (Colace) 100 mg EVERY 12 HOURS ORAL 09/29/19 09:00 10/29/19 08:59 09/30/19 08:54 Ferrous Sulfate (Feosol) 325 mg THREE TIMES A DAY ORAL 09/30/19 13:00 10/30/19 12:59 09/30/19 17:10 Heparin Sodium (Porcine) (Heparin 5000 units/ml) 5,000 units EVERY 12 HOURS SUBQ 09/29/19 09:00 10/29/19 08:59 09/30/19 08:54 Levofloxacin (Levaquin) 500 mg DAILY ORAL 10/01/19 09:00 10/08/19 08:59 Lorazepam (Ativan) 1 mg Q4H PRN ORAL For Anxiety 09/28/19 23:15 10/05/19 23:14 Methylprednisolone Sodium Succinate (Solu-MEDROL) 40 mg EVERY 8 HOURS IVP 09/29/19 06:00 10/29/19 05:59 09/30/19 13:03 Ondansetron HCl (Zofran) 4 mg Q6H PRN IVP Nausea & Vomiting 09/28/19 23:15 10/28/19 23:14 Pantoprazole (Protonix) 40 mg DAILY@0630 ORAL 09/29/19 06:30 10/29/19 06:29 09/30/19 06:00 Tramadol HCl (Ultram) 50 mg Q6H PRN ORAL pain 09/29/19 11:15 10/06/19 11:14 09/29/19 13:47 Zolpidem Tartrate (Ambien) 5 mg HSPRN PRN ORAL Insomnia 09/28/19 23:15 10/05/19 23:14 Danyel Wilson MD Sep 30, 2019 21:47
[2019-10-01] MEDS: traMADol 50mg tab ORAL PRN (04:22)
[2019-10-01 04:30] VITALS: BP 134/80
[2019-10-01] MEDS: Solu-MEDROL 40mg Inj IVP SCH (06:10)
[2019-10-01 06:12] LABS: HEMATOCRIT 30.3 % (42.0-52.0); HEMOGLOBIN 9.4 G/DL (14.2-18.0); MEAN CORPUSCULAR VOLUME 69 FL (80-99); PLATELET COUNT 229 K/UL (150-450); RED CELL DISTRIBUTION WIDTH 18.5 % (11.6-14.8)
[2019-10-01 06:46] LABS: ANION GAP 7 mmol/L (5-15); BLOOD UREA NITROGEN 15 mg/dL (7-18); CALCIUM 8.7 MG/DL (8.5-10.1); CARBON DIOXIDE 29 MMOL/L (21-32); CHLORIDE 107 MMOL/L (98-107); CREATININE 0.9 MG/DL (0.55-1.30); POTASSIUM 3.9 MMOL/L (3.5-5.1); SODIUM 143 MMOL/L (136-145)
--- NOTE | 2019-10-01 07:39 | NUR ---
HAND-OFF: Report given to Brigid LOW.
--- NOTE | 2019-10-01 08:01 | NUR ---
NURSE NOTES: pt sleeping in bed. Bed in lowest position and locked. Call light within reach. Will continue to monitor labs and follow plans of care.
[2019-10-01 08:30] VITALS: BP 184/118
[2019-10-01] MEDS ORDERED: HYDROcodone/Acetamin 5/325 tab ORAL PRN (08:45)
[2019-10-01] MEDS ORDERED: Levofloxacin 500mg tab ORAL SCH (09:00)
[2019-10-01] MEDS: Docusate 100mg cap ORAL SCH (09:22)
[2019-10-01] MEDS: Heparin 5000 units/ml inj SUBQ SCH (09:24)
--- NOTE | 2019-10-01 09:50 | Discharge Summary ---
Discharge Summary Hospital Course Date of Admission Sep 28, 2019 at 22:50 Date of Discharge 10/01/2019 Admitting Diagnosis copd exacerbation HPI Jorge Luis Mendez is a 64 year old male who was admitted on Sep 28, 2019 at 22:50 for Chronic Obstructive Pulmonary Disease Exacerbation Consultations Pulmonology: Dr. Pink Hospital Course 64 M poor historian presented with sob #?PE, given new dx f cancer WELLS score 2.5- moderate risk. age adjusted d-dimer negative, this ruled out PE #AECOPD duonebs IV methylprednisolone, taper per clinical response, switch to PO Add levofloxacin pulmonary hygiene O2 via pa as needed pulmonary consult #Mild dehydration-resolved -s/p V fluids #Hypokalemia replace prn #Anemia, microcytic Anemia panel --> iron deficiency anemia start ferrous sulfate #? cancer, recent abdominal surgery -Will have to obtain more information from [facility] -/caseworker protective services consult #Hypertension ? history of htn. unknown home meds. Add amlodipine 10mg, hydralazine prn I spent 35 minutes on this encounter. >50% spent on counselling and care coordination. case d/w rn Time of note may not reflect time of encounter Discharge Medications New Medications: Prednisone* (Prednisone*) 20 Mg Tablet 40 MG ORAL DAILY for 5 Days, #5 TAB Amlodipine Besylate (Norvasc) 10 Mg Tablet 10 MG ORAL DAILY for 30 Days, #30 TAB Ferrous Sulfate (Feosol) 325 Mg Tablet 325 MG ORAL THREE TIMES A DAY for 90 Days, #90 TAB Levofloxacin* (Levaquin*) 500 Mg Tablet 500 MG ORAL DAILY for 5 Days, #5 TAB Tramadol Hcl* (Ultram*) 50 Mg Tablet 50 MG ORAL Q6H PRN for 5 Days, #20 TAB Continued Medications: No Known Medications* (NKM - No Known Medications*) . 0 ., 0 Refills (This prescription has been renewed) Discharge Condition Upon Discharge: stable Discharge Disposition Patient was discharged to home with service via [facility] Discharge Diagnoses: (1) COPD exacerbation Dewayne Waite M.D. Oct 01, 2019 09:50
[2019-10-01] MEDS ORDERED: PREDNISONE20 MG ORAL (10:03)
[2019-10-01] MEDS ORDERED: NORVASC10 MG ORAL (10:03)
[2019-10-01] MEDS ORDERED: LEVAQUIN500 MG ORAL (10:03)
[2019-10-01] MEDS ORDERED: TRAMADOL HCL50 MG ORAL (10:03)
[2019-10-01] MEDS ORDERED: FEOSOL325 MG ORAL (10:03)
--- NOTE | 2019-10-01 10:04 | Discharge Instructions ---
Discharge Instructions Discharge Instructions Services at Discharge: home health services Special Instructions follow up with own surgeon at [facility] for follow up For Congestive Heart Failure Reminder Report to your physician any weight gain of 5 pounds or more in one week. Dewayne Waite M.D. Oct 01, 2019 10:04
--- NOTE | 2019-10-01 10:21 | NUR ---
DISCHARGE PLANNING: PATIENT HAS BEEN REFERRED TO [facility] T: [phone] F:[phone] WAITING FOR RESPONSE, WILL FOLLOW UP.
[2019-10-01 10:45] VITALS: BP 137/94
--- NOTE | 2019-10-01 10:49 | Pulmonology Progress Note ---
Assessment/Plan Problems: (1) COPD exacerbation Assessment/Plan Optimize pulmonary hygiene/mobilize as tolerated PRN O2 HHN's DC SM start Pred 40 and taper Outpatient pulmonary eval, needs CT/PFT, etc DVT Px: Hep SQ Monitor WCt likely steroid effect D-Dimer only minimally elevated doubt VTE Subjective Allergies: Coded Allergies: IBUPROFEN (Verified Allergy, Unknown, 09/28/19) Subjective AFVSS on RA WCt 20 No cough no SOB no FC no CP Objective Last 24 Hour Vital Signs Date Time Temp Pulse Resp B/P (MAP) Pulse Ox O2 Delivery O2 Flow Rate FiO2 10/01/19 09:21 184/118 10/01/19 08:30 98.1 84 15 184/118 (140) 99 10/01/19 07:12 96 Nasal Cannula 2.0 28 10/01/19 07:12 84 20 96 Nasal Cannula 2.0 28 10/01/19 04:30 98.0 69 19 134/80 (98) 97 09/30/19 23:57 98.0 74 19 130/83 (99) 09/30/19 21:59 Nasal Cannula 2.5 09/30/19 20:00 97.9 82 19 124/76 (92) 96 09/30/19 18:50 83 18 100 09/30/19 18:40 91 20 98 Nasal Cannula 2.0 28 09/30/19 18:40 91 20 98 Nasal Cannula 2.0 28 09/30/19 18:40 98 Nasal Cannula 2.0 28 09/30/19 16:00 98.2 70 19 128/61 (83) 96 09/30/19 12:00 98.2 67 18 128/88 (101) 96 Intake and Output 09/30/19 10/01/19 18:59 06:59 Intake Total 360 ml Output Total 500 ml Balance -140 ml Intake Oral 360 ml Output Urine Total 500 ml # Voids 4 2 General Appearance: WD/WN, no acute distress HEENT: normocephalic, atraumatic, anicteric, mucous membranes moist Respiratory/Chest: chest wall non-tender, lungs clear, normal breath sounds, no respiratory distress, no accessory muscle use Cardiovascular: normal peripheral pulses, normal rate, regular rhythm Abdomen: normal bowel sounds, soft, non tender, no organomegaly, non distended , no mass Extremities: no cyanosis, no clubbing, no edema Laboratory Tests 11/7/19 05:58: White Blood Count 20.0H, Red Blood Count 4.40L, Hemoglobin 9.4L, Hematocrit 30.3L, Mean Corpuscular Volume 69L, Mean Corpuscular Hemoglobin 21.3L, Mean Corpuscular Hemoglobin Concent 31.0L, Red Cell Distribution Width 18.5H, Platelet Count 229, Mean Platelet Volume 10.5H, Neutrophils (%) (Auto) , Lymphocytes (%) (Auto) , Monocytes (%) (Auto) , Eosinophils (%) (Auto) , Basophils (%) (Auto) , Differential Total Cells Counted 100, Neutrophils % ( Manual) 83H, Lymphocytes % (Manual) 9L, Monocytes % (Manual) 5, Eosinophils % ( Manual) 0, Basophils % (Manual) 0, Band Neutrophils 3, Platelet Estimate Adequate, Platelet Morphology Normal, Hypochromasia 2+, Anisocytosis 2+, Microcytosis 3+, D-Dimer 0.59H, Sodium Level 143, Potassium Level 3.9, Chloride Level 107, Carbon Dioxide Level 29, Anion Gap 7, Blood Urea Nitrogen 15, Creatinine 0.9, Estimat Glomerular Filtration Rate > 60, Glucose Level 94, Calcium Level 8.7 Current Medications Medications (Trade) Dose Ordered Sig/Varun Route PRN Reason Start Time Stop Time Status Last Admin Dose Admin Acetaminophen/ Hydrocodone Bitart (Prospect 5/325) 1 tab Q4H PRN ORAL Severe Pain (Pain Scale 7-10) 10/01/19 08:45 10/08/19 08:44 10/01/19 09:22 Al Hydroxide/Mg Hydroxide (Mylanta II) 30 ml Q6H PRN ORAL dyspepsia 09/28/19 23:15 10/28/19 23:14 Albuterol/ Ipratropium (Albuterol/ Ipratropium) 3 ml Q4H PRN HHN Shortness of Breath 09/28/19 23:15 10/03/19 23:14 09/30/19 18:40 Amlodipine Besylate (Norvasc) 10 mg DAILY ORAL 10/01/19 09:00 10/31/19 08:59 Bisacodyl (Dulcolax) 10 mg HSPRN PRN RECTAL Constipation 09/28/19 23:15 10/28/19 23:14 Dextrose (Dextrose 50%) 25 ml Q30M PRN IV Hypoglycemia 09/28/19 23:15 10/28/19 23:14 Dextrose (Dextrose 50%) 50 ml Q30M PRN IV Hypoglycemia 09/28/19 23:15 10/28/19 23:14 Diphenhydramine HCl (Benadryl) 25 mg Q6H PRN ORAL Itching/Pruritis 09/28/19 23:15 10/28/19 23:14 Docusate Sodium (Colace) 100 mg EVERY 12 HOURS ORAL 09/29/19 09:00 10/29/19 08:59 10/01/19 09:22 Ferrous Sulfate (Feosol) 325 mg THREE TIMES A DAY ORAL 09/30/19 13:00 10/30/19 12:59 10/01/19 09:22 Heparin Sodium (Porcine) (Heparin 5000 units/ml) 5,000 units EVERY 12 HOURS SUBQ 09/29/19 09:00 10/29/19 08:59 10/01/19 09:24 Levofloxacin (Levaquin) 500 mg DAILY ORAL 10/01/19 09:00 10/08/19 08:59 10/01/19 09:22 Lorazepam (Ativan) 1 mg Q4H PRN ORAL For Anxiety 09/28/19 23:15 10/05/19 23:14 Ondansetron HCl (Zofran) 4 mg Q6H PRN IVP Nausea & Vomiting 09/28/19 23:15 10/28/19 23:14 Pantoprazole (Protonix) 40 mg DAILY@0630 ORAL 09/29/19 06:30 10/29/19 06:29 10/01/19 06:10 Tramadol HCl (Ultram) 50 mg Q6H PRN ORAL pain 09/29/19 11:15 10/06/19 11:14 10/01/19 04:22 Zolpidem Tartrate (Ambien) 5 mg HSPRN PRN ORAL Insomnia 09/28/19 23:15 10/05/19 23:14 09/30/19 23:24 Goyo Pink MD Oct 01, 2019 10:49
--- NOTE | 2019-10-01 11:14 | NUR ---
DISCHARGE PLANNED: DISCUSSED DISCHARGE WITH PATIENT AT BEDSIDE PATIENT IS READY FOR DISCHARGE SPOKE TO CAMILA FROM [facility] PATIENT HAS BEEN ACCEPTED FOR SERVICES T: [phone] F:[phone] [facility] WILL NOTIFY DAUGHTER (LUIS M) BECAUSE PATIENT STATES HIS PHONE IS OUT OF SERVICE SPOKE TO EJ ASENCIO ABOUT DISCHARGE T:[phone]
[2019-10-01 12:00] VITALS: BP 127/92
--- NOTE | 2019-10-01 12:25 | NUR ---
CASE MANAGEMENT: REVIEW 10/01/19 SI: COPD EXACERBATION 98.1 84 15 184/118 99% NC 2.5L WBC 20.0 IS: LEVQUIN PO QD FEOSOL PO TID HEPARIN SQ Q12HR PROTONIX PO QD IV SOLUMEDROL Q8HR COLACE PO Q12HR ULTRAM PO Q6/PRN ALBUTEROL HHN Q4/PRN NORVASC PO QD : 4E TELE UNIT DCP: RETURN HOME WHEN MEDICALLY STABLE
--- NOTE | 2019-10-01 13:25 | NUR ---
*-* INSURANCE *-* ALL AVAILABLE CLINICALS HAVE CLIFF FAXED TO: [facility] REf# [id number] CM: Brittany #[phone] fax#[phone]
--- NOTE | 2019-10-01 13:45 | NUR ---
NURSE NOTES: spoke to Héctor from [facility], they have all 5 prescribed medication. They will fill meds and bring meds for pt to take home upon DC
--- NOTE | 2019-10-01 14:01 | NUR ---
NURSE NOTES: notified Dasia Mr. Moser's daughter about pt DC today. Pt will be p/u by family member when she gets off from work after 6pm today.
[2019-10-01 16:00] VITALS: BP 126/82
--- NOTE | 2019-10-01 19:26 | NUR ---
HAND-OFF: Report given to Chantale/RN, pt in stable condition.
--- NOTE | 2019-10-01 19:30 | NUR ---
HAND-OFF: Report given to Chantale/DEVANTE. Pt has medication to take home with him tonight once daughter picks him up. IV to be DC upon discharge. Belonging and discharge instruction to be reenforced with pt and family member upon DC. Pt being DC with Home health.
[2019-10-01 19:55] VITALS: BP 108/64
--- NOTE | 2019-10-01 20:13 | NUR ---
NURSE NOTES: pt is being discharged. pt tolerates room air to breath, no acute distress notes. educated r/t current health condition and medications. pt verbalized to understanding. reinforced to follow up with pt's primary Dr. pt 's going home with daughter. escorted to the parking lot by wheelchair.
--- NOTE | 2019-10-02 11:32 | Cardiology Report ---
APPROVED REPORT EKG Measurement Heart [id number] Normal sinus rhythm Right axis deviation T wave abnormality, consider inferolateral ischemia Abnormal ECG
== END 2019-10-01 20:08 | disposition home health service (06) | DRG 140 ==
LOC: EDBD 21:11 → EMR 21:41 → 4E 22:50 → EDBEDREQ 23:22 → 4E 09-29 01:59
DX: J44.1 Chronic obstructive pulmonary disease with (acute) exacerbation (principal); E86.0 Dehydration; E87.6 Hypokalemia; Z88.6 Allergy status to analgesic agent; D50.9 Iron deficiency anemia, unspecified; I10 Essential (primary) hypertension; Z85.038 Personal history of other malignant neoplasm of large intestine
CPT/HCPCS: 36415; 71045; 80048; 80053; 82728; 83540; 83550; 83880; 84484; 85007; 85025; 85379; 93005; 94640; 94664; 96360; 99285; J7030; J7620

== ENCOUNTER → 2019-11-30 | Emergency (ER) | payer MEDICARE, MEDICAID ==
[~2019-11-30] VITALS: Ht 177.8 cm; Wt 68.0 kg
[~2019-11-30] MED LIST: FEOSOL325 MG ORAL; LEVAQUIN500 MG ORAL; NKM; NORVASC10 MG ORAL; PREDNISONE20 MG ORAL; TRAMADOL HCL50 MG ORAL
[2019-11-30 16:30] VITALS: BP 138/90
--- NOTE | 2019-11-30 16:30 | NUR ---
ED Nurse Note: Pt arrived to ED with c/o CP with 4/10 pain scale. Pt is AOx4, calm and cooperative. Placed on bed; hooked to monitor technician.
[2019-11-30 17:32] LABS: ANION GAP 9 mmol/L (5-15); BLOOD UREA NITROGEN 22 mg/dL (7-18); CALCIUM 8.9 MG/DL (8.5-10.1); CARBON DIOXIDE 28 MMOL/L (21-32); CHLORIDE 102 MMOL/L (98-107); CREATININE 1.9 MG/DL (0.55-1.30); POTASSIUM 4.3 MMOL/L (3.5-5.1); SODIUM 139 MMOL/L (136-145)
[2019-11-30 17:40] LABS: BASOPHILS % (AUTO) 1.2 % (0.0-2.0); EOSINOPHILS % (AUTO) 2.7 % (0.0-3.0); HEMATOCRIT 37.3 % (42.0-52.0); HEMOGLOBIN 11.4 G/DL (14.2-18.0); LYMPHOCYTES % (AUTO) 19.4 % (20.0-45.0); MEAN CORPUSCULAR VOLUME 77 FL (80-99); MONOCYTES % (AUTO) 6.3 % (1.0-10.0); NEUTROPHILS % (AUTO) 70.3 % (45.0-75.0); PLATELET COUNT 199 K/UL (150-450); RED BLOOD COUNT 4.82 M/UL (4.70-6.10); RED CELL DISTRIBUTION WIDTH 16.9 % (11.6-14.8); WHITE BLOOD COUNT 9.8 K/UL (4.8-10.8)
[2019-11-30 17:48] LABS: ALANINE AMINOTRANSFERASE 25 U/L (12-78); ALBUMIN 3.7 G/DL (3.4-5.0); ALBUMIN/GLOBULIN RATIO 0.9 (1.0-2.7); ALKALINE PHOSPHATASE 103 U/L (46-116); ASPARTATE AMINO TRANSFERASE 19 U/L (15-37); BILIRUBIN,TOTAL 0.5 MG/DL (0.2-1.0)
[2019-11-30 18:55] VITALS: BP 138/90
--- NOTE | 2019-11-30 18:55 | NUR ---
ER DISCHARGE NOTE: Patient is cleared to be discharged per ERMD, pt is aox4, on room air, with stable vital signs. pt was given dc and prescription instructions, pt was able to verbalize understanding, pt id band and iv site removed without complications. pt is able to ambulate with steady gait. pt took all belongings.
--- NOTE | 2019-11-30 20:49 | Emergency Room Report ---
History of Present Illness General Chief Complaint: Chest Pain Source: Patient Present Illness HPI 64-year-old male presents ED for evaluation. Brought in by EMS for chest pain. Witnesses reported that patient was complaining of chest pain. Denies any chest pain to EMS. Denies chest pain upon arrival. Denies smoking or drug use. No other aggravating relieving factors. Denies any other associated symptoms Allergies: Coded Allergies: IBUPROFEN (Verified Allergy, Unknown, 09/28/19) Patient History Past Medical History: HTN, asthma, COPD Past Surgical History: none Pertinent Family History: none Social History: Denies: smoking, alcohol use, drug use Immunizations: UTD Reviewed Nursing Documentation: PMH: Agreed; PSxH: Agreed Nursing Documentation-PMH Past Medical History: No History, Except For Hx Hypertension: Yes Hx Asthma: Yes Hx COPD: Yes Review of Systems All Other Systems: negative except mentioned in HPI Physical Exam Vital Signs Date Time Temp Pulse Resp B/P (MAP) Pulse Ox O2 Delivery O2 Flow Rate FiO2 11/30/19 16:22 98.2 90 16 138/90 (106) 90 Room Air Sp02 EP Interpretation: reviewed, normal General Appearance: no apparent distress, alert, GCS 15, non-toxic Head: normocephalic, atraumatic Eyes: bilateral eye normal inspection, bilateral eye PERRL ENT: hearing grossly normal, normal pharynx, no angioedema, normal voice Neck: full range of motion, supple/symm/no masses Respiratory: chest non-tender, lungs clear, normal breath sounds, speaking full sentences Cardiovascular #1: regular rate, rhythm, no edema Cardiovascular #2: 2+ carotid (R), 2+ carotid (L), 2+ radial (R), 2+ radial (L) , 2+ dorsalis pedis (R), 2+ dorsalis pedis (L) Gastrointestinal: normal bowel sounds, non tender, soft, non-distended, no guarding, no rebound Rectal: deferred Genitourinary: normal inspection, no CVA tenderness Musculoskeletal: back normal, normal range of motion, gait/station normal, non- tender Neurologic: alert, motor strength/tone normal, oriented x3, sensory intact, responsive, speech normal Psychiatric: judgement/insight normal, memory normal, mood/affect normal, no suicidal/homicidal ideation Reflexes: 3+ bicep (R), 3+ bicep (L), 3+ tricep (R), 3+ tricep (L), 3+ knee (R) , 3+ knee (L) Lymphatic: no adenopathy Medical Decision Making Homeless Attestation I, The treating physician Dr. Larson, have assessed and agrees that patient is medically stable for discharge to an outpatient disposition. Diagnostic Impression: Primary Impression: Renal insufficiency Additional Impression: Chest pain Qualified Codes: R07.9 - Chest pain, unspecified ER Course Hospital Course 64-year-old M presents ED complaining of chest pain Differential diagnoses include: Rib fracture, MS/unstable angina, contusion, muscle strain Clinical course Patient placed on stretcher. After initial history and physical I ordered labs , EKG, chest x-ray. labs reviewed- BUN/Cr mildly elevated, troponins negative, no leukocytosis, hemoglobin/hematocrit stable EKG - NSR, no acute ischemic changes interpreted by me Chest x-ray-no cardiomegaly, no rib fracture, no pneumothorax, no acute process I discussed findings with patient. Chest pain-free during my assessment and during EMS assessment. Vitals stable. Negative troponin. Explained his elevated creatinine and recommended close follow-up with PMD. Patient states he wishes to be discharged. I believe patient can be safely discharged to home. safe for discharge for close outpatient follow-up. I will provide referrals I. I feel this is a highly complex case requiring extensive working including EKG/Rhythm strip, Xray/CT/US, Blood/urine lab work, repeat exams while in ED, and administration of strong opiates/narcotics for pain control, admission to hospital or close patient follow up. Diagnosis - chest pain, renal insufficiency Stable and discharged to home. Instructed to followup with PMD. Return to ED if symptoms recur or worsen Labs Test 11/30/19 16:45 White Blood Count 9.8 K/UL (4.8-10.8) Red Blood Count 4.82 M/UL (4.70-6.10) Hemoglobin 11.4 G/DL (14.2-18.0) Hematocrit 37.3 % (42.0-52.0) Mean Corpuscular Volume 77 FL (80-99) Mean Corpuscular Hemoglobin 23.6 PG (27.0-31.0) Mean Corpuscular Hemoglobin Concent 30.5 G/DL (32.0-36.0) Red Cell Distribution Width 16.9 % (11.6-14.8) Platelet Count 199 K/UL (150-450) Mean Platelet Volume 10.8 FL (6.5-10.1) Neutrophils (%) (Auto) 70.3 % (45.0-75.0) Lymphocytes (%) (Auto) 19.4 % (20.0-45.0) Monocytes (%) (Auto) 6.3 % (1.0-10.0) Eosinophils (%) (Auto) 2.7 % (0.0-3.0) Basophils (%) (Auto) 1.2 % (0.0-2.0) Sodium Level 139 MMOL/L (136-145) Potassium Level 4.3 MMOL/L (3.5-5.1) Chloride Level 102 MMOL/L (98-107) Carbon Dioxide Level 28 MMOL/L (21-32) Anion Gap 9 mmol/L (5-15) Blood Urea Nitrogen 22 mg/dL (7-18) Creatinine 1.9 MG/DL (0.55-1.30) Estimat Glomerular Filtration Rate 43.1 mL/min (>60) Glucose Level 79 MG/DL (74-106) Calcium Level 8.9 MG/DL (8.5-10.1) Total Bilirubin 0.5 MG/DL (0.2-1.0) Aspartate Amino Transf (AST/SGOT) 19 U/L (15-37) Alanine Aminotransferase (ALT/SGPT) 25 U/L (12-78) Alkaline Phosphatase 103 U/L (46-116) Troponin I 0.000 ng/mL (0.000-0.056) Pro-B-Type Natriuretic Peptide 262 pg/mL (0-125) Total Protein 7.8 G/DL (6.4-8.2) Albumin 3.7 G/DL (3.4-5.0) Globulin 4.1 g/dL Albumin/Globulin Ratio 0.9 (1.0-2.7) EKG Diagnostic Results Rate: normal Rhythm: NSR ST Segments: no acute changes ASA given to the pt in ED: No Rhythm Strip Diag. Results EP Interpretation: yes Rhythm: NSR, no PVC's, no ectopy Chest X-Ray Diagnostic Results Chest X-Ray Diagnostic Results : Chest X-Ray Ordered: Yes # of Views/Limited/Complete: 1 View Indication: Chest Pain EP Interpretation: Yes Interpretation: no consolidation, no effusion, no pneumothorax, no acute cardiopulmonary disease Impression: No acute disease Electronically Signed by: Electronically signed by Blaise Larson MD Last Vital Signs Date Time Temp Pulse Resp B/P (MAP) Pulse Ox O2 Delivery O2 Flow Rate FiO2 11/30/19 18:55 98.2 83 18 138/90 99 Room Air Status: improved Disposition: HOME, SELF-CARE Condition: Stable Referrals: [facility] Patient Instructions: Nonspecific Chest Pain Blaise Larson MD Nov 30, 2019 20:49
--- NOTE | 2019-12-01 08:00 | Diagnostic Imaging Report ---
Indication: 09/30/2019 Technique: One view of the chest Comparison: none Findings: Lungs and pleural spaces are clear. Heart size is normal. No significant change Impression: No acute process
== END | disposition home or self-care (01) ==
LOC: EDUNIT# 16:21 → EDBD 16:27 → EMR 17:30
DX: R07.9 Chest pain, unspecified (principal); N28.9 Disorder of kidney and ureter, unspecified; Z88.6 Allergy status to analgesic agent; J44.9 Chronic obstructive pulmonary disease, unspecified; I10 Essential (primary) hypertension
CPT/HCPCS: 71045; 80053; 83880; 84484; 85025; 93005; 99283